=== PATIENT | male | born 1950 | race Asian ===

== ENCOUNTER 2021-07-22 15:05 | Outpatient (CLI) | payer MEDICARE ==
[2021-07-23 11:25] LABS: SARS-CoV-2 PCR by NAA Not Detected (NotDetected)
== END 2021-07-22 15:06 | disposition home or self-care (01) ==
LOC: LABBT 15:05
PROVIDERS: ATTEND Ophthalmology Retina Specialist
DX: Z01.812 Encounter for preprocedural laboratory examination (principal); Z20.822 Contact with and (suspected) exposure to COVID-19
CPT/HCPCS: U0003; U0005

== ENCOUNTER 2021-07-24 10:22 | Day surgery (SDC) | payer MEDICARE ==
[2021-07-23 14:15] VITALS: BMI 23.3
[~2021-07-24 10:22] MED LIST: Fluorouracil 100 MG, Enoxaparin Sodium 25 MG, EPINEPHrine 0.3 MG in Ophthalmic Irrigati... IRR SCH
[2021-07-24] MEDS ORDERED: Cyclopentolate 1% Opth Drop 2 ML BOT ONE (10:33)
[2021-07-24] MEDS ORDERED: Phenylephrine 2.5% Ophth Soln 5 ML BOT ONE (10:33)
[2021-07-24] MEDS ORDERED: Lidocaine 4% PF 5 ML AMP ONE (11:20)
[2021-07-24] MEDS ORDERED: PROPOFOL 200 MG/20 ML VIAL ONE (11:20)
[2021-07-24] MEDS ORDERED: Lidocaine 1% PF 5 ML VIAL ONE (11:20)
[2021-07-24] MEDS ORDERED: Enoxaparin Sodium 30 MG/0.3 ML SYRINGE ONE (11:20)
[2021-07-24] MEDS ORDERED: Maxitrol 0.1% Opth Oint 3.5 GM TUBE ONE (11:20)
[2021-07-24] MEDS ORDERED: Bupivacaine PF 0.75% SDV 10 ML ONE (11:20)
[2021-07-24] MEDS ORDERED: Triamcinolone 40 MG/ML VIAL ONE (11:20)
[2021-07-24] MEDS ORDERED: CEFAZOLIN 1 GM VIAL ONE (11:20)
== END 2021-07-24 12:50 | disposition home or self-care (01) ==
LOC: SDC 10:22
PROVIDERS: ATTEND Ophthalmology Retina Specialist
PROC: 08T43ZZ Resection of Right Vitreous, Percutaneous Approach (ICD-10-PCS; principal; 2021-07-24)
DX: H33.011 Retinal detachment with single break, right eye (principal); I10 Essential (primary) hypertension; Z79.899 Other long term (current) drug therapy
CPT/HCPCS: J0171; J0690; J1650; J2704; J3301; J3490; J9190